=== PATIENT | male | born 1950 | race Caucasian/White ===

== ENCOUNTER → 2016-06-07 | Outpatient (CLI) | payer BC ==
--- NOTE | 2016-06-07 09:53 | DIAGNOSTIC IMAGING REPORT ---
RIGHT ELBOW 3 VIEWS HISTORY: RIGHT ELBOW PAIN Right COMPARISON: Right elbow 03/25/2009. FINDINGS: No acute fracture or dislocation within the right elbow. No significant joint effusion. Enthesophytes at the medial and lateral condyle consistent with chronic change. Soft tissue swelling at the lack of non-. Progressive fragmentation/calcification at the distal triceps attachment consistent with calcific tendinitis. 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 IMPRESSION: 1. Progressive calcification densities of the distal triceps attachment consistent with calcific tendinitis. There is also mild soft tissue swelling at the olecranon. 2. No fracture or dislocation within the right elbow. Electronically signed by: Gonzalo Norwood M.D. 06/07/2016 9:51 AM Dictated Date/Time: 06/07/2016 9:41 AM
== END | disposition home or self-care (01) ==
LOC: C.RDSM 09:25
PROVIDERS: ATTEND Internal Medicine
DX: M25.521 Pain in right elbow (principal)